=== PATIENT | female | born 1990 | race Caucasian/White ===

== ENCOUNTER 2016-09-27 17:31 | Emergency (ER) | payer BC, MEDICAID ==
[2016-09-27 17:41] VITALS: BP 143/68
--- NOTE | 2016-09-27 17:44 | ER Document Report ---
ED Medical Screen (RME) - General Chief Complaint: Vaginal Bleeding Stated Complaint: CRAMPING Time Seen by Provider: 09/27/16 17:43 Mode of Arrival: Ambulatory Information source: Patient TRAVEL OUTSIDE OF THE [place] IN LAST 30 DAYS: No - HPI Patient complains to provider of: , cramping, spotting Onset: Yesterday Onset/Duration: Gradual Quality of pain: Cramping Severity: Mild Pain Level: 1 Associated Symptoms: Vaginal bleeding Exacerbated by: Denies Relieved by: Denies Similar symptoms previously: No Recently seen / treated by doctor: Yes Notes: 09/27/16 17:50 Patient is a 26-year-old female who is a currently approximately 14 weeks , she works [employer] and on when she was lifting some heavy rocks approximately 70 pounds, she tripped and fell with the rock, she developed some spotting later that night and yesterday which has since resolved, however she continues to have crampy abdominal pain - Related Data Allergies/Adverse Reactions: cefaclor [From Ceclor] Allergy (Mild, Verified 09/27/16 17:38) rash as child Past Medical History Endocrine Medical History: Reports: Hx Hypothyroidism Renal/ Medical History: Denies: Hx Peritoneal Dialysis GI Medical History: Reports: Hx Gastroesophageal Reflux Disease. Denies: Hx Hiatal Hernia, Hx Ulcer Psychiatric Medical History: Reports: Hx Depression - HX OF DEPRESSION Denies: Hx Bipolar Disorder, Hx Schizophrenia Past Surgical History: Reports: Hx Section - x3 - Immunizations Hx Diphtheria, Pertussis, Tetanus Vaccination: Yes - 2009 Physical Exam - Vital signs Vitals: Temp Pulse Resp BP Pulse Ox 98 F 77 16 143/68 H 99 09/27/16 17:38 09/27/16 17:38 09/27/16 17:38 09/27/16 17:38 09/27/16 17:38 Course - Vital Signs Vital signs: Temp Pulse Resp BP Pulse Ox 98 F 77 16 143/68 H 99 09/27/16 17:38 09/27/16 17:38 09/27/16 17:38 09/27/16 17:38 09/27/16 17:38
[2016-09-27 18:11] LABS: ABSOLUTE EOSINOPHILS # (AUTO) 0.1 10^3/uL (0.0-0.6); ABSOLUTE LYMPHOCYTES (AUTO) 2.7 10^3/uL (0.5-4.7); ABSOLUTE MONOCYTES (AUTO) 0.8 10^3/uL (0.1-1.4); ABSOLUTE NEUT (AUTO) 10.1 10^3/uL (1.7-8.2); BASOPHILS % (AUTO) 0.3 % (0-2); HEMATOCRIT 37.2 % (36.0-47.0); HEMOGLOBIN 12.3 g/dL (12.0-15.5); HGB HCT DIFFERENCE -0.3; LYMPHOCYTES % (AUTO) 19.6 % (13-45); MEAN CORPUSCULAR HEMOGLOBIN 29.2 pg (27.0-33.4); MEAN CORPUSCULAR VOLUME 88 fl (80-97); MONOCYTES % (AUTO) 5.8 % (3-13); RED BLOOD COUNT 4.21 10^6/uL (3.72-5.28); RED CELL DISTRIBUTION WIDTH 15.3 % (11.5-14.0); SEGMENTED NEUTROPHILS % (AUTO) 73.3 % (42-78); WHITE BLOOD COUNT 13.7 10^3/uL (4.0-10.5)
--- NOTE | 2016-09-27 18:21 | ER Document Report ---
ED General - General Chief Complaint: Vaginal Bleeding Stated Complaint: CRAMPING Time Seen by Provider: 09/27/16 17:43 Mode of Arrival: Ambulatory Information source: Patient Notes: 26-year-old female 4 para 3 who is approximately 13 weeks presents with complaints of spotting that occurred this morning and now cramping. Patient notes she had a heavy brick fall on her yesterday. Blood type is a positive denies any other concerns TRAVEL OUTSIDE OF THE [place] IN LAST 30 DAYS: No - HPI Onset: Yesterday Onset/Duration: Sudden Quality of pain: Cramping Severity: Mild Pain Level: 1 Associated symptoms: None Exacerbated by: Denies Relieved by: Denies Similar symptoms previously: No Recently seen / treated by doctor: No - Related Data Allergies/Adverse Reactions: cefaclor [From Ceclor] Allergy (Mild, Verified 09/27/16 17:38) rash as child Past Medical History - General Information source: Patient Last Menstrual Period: Jun - Social History Smoking Status: Never Smoker Cigarette use (# per day): No Chew tobacco use (# tins/day): No Smoking Education Provided: No Frequency of alcohol use: None Drug Abuse: None Family History: Reviewed & Not Pertinent Patient has suicidal ideation: No Patient has homicidal ideation: No Endocrine Medical History: Reports: Hx Hypothyroidism Renal/ Medical History: Denies: Hx Peritoneal Dialysis GI Medical History: Reports: Hx Gastroesophageal Reflux Disease. Denies: Hx Hiatal Hernia, Hx Ulcer Psychiatric Medical History: Reports: Hx Depression - HX OF DEPRESSION Denies: Hx Bipolar Disorder, Hx Schizophrenia Past Surgical History: Reports: Hx Section - x3 - Immunizations Hx Diphtheria, Pertussis, Tetanus Vaccination: Yes - 2009 Review of Systems - Review of Systems Notes: PHYSICAL EXAMINATION: GENERAL: Well-appearing, well-nourished and in no acute distress. HEAD: Atraumatic, normocephalic. EYES: Pupils equal round and reactive to light, extraocular movements intact, conjunctiva are normal. ENT: Nares patent, oropharynx clear without exudates. Moist mucous membranes. NECK: Normal range of motion, supple without lymphadenopathy LUNGS: Breath sounds clear to auscultation bilaterally and equal. No wheezes rales or rhonchi. HEART: Regular rate and rhythm without murmurs ABDOMEN: Soft, nontender, nondistended abdomen. No guarding, no rebound. No masses appreciated. Female : deferred Musculoskeletal: Normal range of motion, no pitting or edema. No cyanosis. NEUROLOGICAL: Cranial nerves grossly intact. Normal speech, normal gait. Normal sensory, motor exams PSYCH: Normal mood, normal affect. SKIN: Warm, Dry, normal turgor, no rashes or lesions noted. Physical Exam - Vital signs Vitals: Temp Pulse Resp BP Pulse Ox 98 F 77 16 143/68 H 99 09/27/16 17:38 09/27/16 17:38 09/27/16 17:38 09/27/16 17:38 09/27/16 17:38 Course - Re-evaluation Re-evalutation: 09/27/16 18:28 Patient is in no distress, resting comfortably IuP was confirmed at 7 weeks 09/27/16 19:42 Ultrasound is consistent with a 14 week 2 day given that patient is not bleeding looks well believe she is stable for discharge patient is very happy with this plan After performing a Medical Screening Examination, I estimate there is LOW risk for ACUTE APPENDICITIS, BOWEL OBSTRUCTION, ACUTE CHOLECYSTITIS, PERFORATED DIVERTICULITIS, INCARCERATED HERNIA, PANCREATITIS, PELVIC INFLAMMATORY DISEASE, PERFORATED ULCER, ECTOPIC , or TUBO-OVARIAN ABSCESS, thus I consider the discharge disposition reasonable. Also, there is no evidence or peritonitis , sepsis, or toxicity. I have reevaluated this patient multiple times and no significant life threatening changes are noted. The patient and I have discussed the diagnosis and risks, and we agree with discharging home with close follow-up with the understanding that symptoms and presentations can change. We also discussed returning to the Emergency Department immediately if new or worsening symptoms occur. We have discussed the symptoms which are most concerning (e.g., bloody stool, fever, changing or worsening pain, vomiting) that necessitate immediate return. - Vital Signs Vital signs: Temp Pulse Resp BP Pulse Ox 98.0 F 86 16 143/68 H 99 09/27/16 17:39 09/27/16 17:39 09/27/16 17:39 09/27/16 17:39 09/27/16 17:39 - Laboratory Result Diagrams: 09/27/16 17:55 09/27/16 17:55 Laboratory results interpreted by me: 09/27/16 09/27/16 09/27/16 17:55 17:55 17:55 WBC 13.7 H RDW 15.3 H Absolute Neutrophils 10.1 H BUN 5 L Creatinine 0.51 L Beta HCG, Quant 92189.00 H Ur Leukocyte Esterase SMALL H - Diagnostic Test Radiology reviewed: Image reviewed, Reports reviewed - 14 week Discharge - Discharge Clinical Impression: Abdominal pain affecting Condition: Stable Disposition: HOME, SELF-CARE Instructions: Abdominal Pain ([facility]) Additional Instructions: Follow up with your physician tomorrow for further care or return to the ED IMMEDIATELY if symptoms worsen or new concerns occur. If you cannot afford to follow up with your primary care physician a list of low cost clinics have been provided at the end of your discharge papers as well.
[2016-09-27 18:24] LABS: APPEARANCE,URINE CLOUDY; BILIRUBIN,URINE NEGATIVE (NEGATIVE); CALCIUM OXALATE CRYSTALS,URINE TOO NUMEROUS TO CNT /HPF; GLUCOSE, URINE NEGATIVE (NEGATIVE); KETONES,URINE NEGATIVE (NEGATIVE); LEUKOCYTE ESTERASE,URINE SMALL (NEGATIVE); NITRITE,URINE NEGATIVE (NEGATIVE); PROTEIN,URINE NEGATIVE (NEGATIVE); URINE SPECIFIC GRAVITY 1.019; UROBILINOGEN,URINE NEGATIVE mg/dL (<2.0)
[2016-09-27 18:29] LABS: ALANINE AMINOTRANSFERASE 19 U/L (9-52); ALBUMIN 3.6 g/dL (3.5-5.0); ALKALINE PHOSPHATASE 58 U/L (38-126); ANION GAP 12 (5-19); ASPARTATE AMINO TRANSFERASE 15 U/L (14-36); BILIRUBIN,DIRECT 0.3 mg/dL (0.0-0.4); BILIRUBIN,TOTAL 0.4 mg/dL (0.2-1.3); BLOOD UREA NITROGEN 5 mg/dL (7-20); CALCIUM 9.2 mg/dL (8.4-10.2); CARBON DIOXIDE 23 mmol/L (22-30); CHLORIDE 105 mmol/L (98-107); CREATININE RESULT 0.51 mg/dL (0.52-1.25); GLUCOSE 88 mg/dL (75-110); LIPASE 51.7 U/L (23-300); POTASSIUM 3.9 mmol/L (3.6-5.0); SODIUM 140.3 mmol/L (137-145); TOTAL PROTEIN 6.4 g/dL (6.3-8.2)
--- NOTE | 2016-09-27 19:35 | RADIOLOGY REPORT (SQ) ---
EXAM DESCRIPTION: U/S OB 14+ TA/1 GEST W/DOPPLER COMPLETED DATE/TIME: 09/27/2016 7:14 pm REASON FOR STUDY: cramping, spotting COMPARISON: None. TECHNIQUE: Transabdominal static and realtime grayscale images acquired of the pelvis. Additional se lected spectral and color Doppler images recorded. All images stored on PACs. bHCG: Not available. LIMITATIONS: None. FINDINGS: FETUS: EGA: 14 weeks 2 days ROSARIO: 03/26/2017 EFW: Not applicable. FHR: 150 beats per minute. MARGARITA: Adequate amount. PLACENTA: Anterior. CERVICAL LENGTH: 3.0 cm Closed. UTERUS: No masses. RIGHT ADNEXA: Ovary not identified. No adnexal free fluid. No adnexal masses. LEFT ADNEXA: Ovary not identified. No adnexal free fluid. No adnexal masses. FREE FLUID: None. OTHER: No other significant finding. IMPRESSION: LIVING INTRAUTERINE . ESTIMATED GESTATIONAL AGE:14 WEEKS 2 DAYS. NO GROSS ABNORMALITY. Trimester of : Second trimester - 13 weeks 1 day to 27 weeks 6 days. TECHNICAL DOCUMENTATION: JOB ID: [id number] [employer]- All Rights Reserved
== END 2016-09-27 20:09 | disposition home or self-care (01) ==
LOC: ER 17:31
DX: N93.9 Abnormal uterine and vaginal bleeding, unspecified (principal); R10.9 Unspecified abdominal pain; Z3A.13 13 weeks gestation of pregnancy
CPT/HCPCS: 36415; 76805; 80053; 81001; 83690; 84702; 85025; 87086; 93976; 99284

== ENCOUNTER 2016-11-22 13:50 | Emergency (ER) | payer MEDICAID ==
[2016-11-22] MEDS ORDERED: NORMAL SALINE 1000 ML 1,000 ML IV ONE (15:11)
[2016-11-22] MEDS ORDERED: METOCLOPRAMIDE HCL INJ/PF 10 MG/2 ML SDV IV ONE (15:11)
[2016-11-22] MEDS ORDERED: DIPHENHYDRAMINE HCL 50 MG/ML VIAL IV ONE (15:11)
--- NOTE | 2016-11-22 15:12 | ER Document Report ---
ED Headache - General Mode of Arrival: Ambulatory Information source: Patient TRAVEL OUTSIDE OF THE [place] IN LAST 30 DAYS: No - HPI Patient complains to provider of: Headache Onset: Other - Refer to HPI notes - General Chief Complaint: Headache Stated Complaint: HEADACHE Time Seen by Provider: 11/22/16 15:05 Notes: Patient is a 26 year old female presenting to the emergency department for headache and nausea. Patient is 21 weeks . 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 Patient states her headache is located in her temples and behind her eyes. Patient's headache was onset 3 days ago. Patient states she is also nauseated and states it is from the headache and not her . Patient denies any vision changes, abdominal pain or vaginal bleeding. (TAISHA NEGRO) - Related Data Allergies/Adverse Reactions: cefaclor [From Ceclor] Allergy (Mild, Verified 11/22/16 14:06) rash as child Past Medical History - General Information source: Patient - Social History Smoking Status: Never Smoker Cigarette use (# per day): No Chew tobacco use (# tins/day): No Smoking Education Provided: No Frequency of alcohol use: None Family History: None Patient has suicidal ideation: No Patient has homicidal ideation: No Endocrine Medical History: Reports: Hx Hypothyroidism GI Medical History: Reports: Hx Gastroesophageal Reflux Disease Psychiatric Medical History: Reports: Hx Depression - HX OF DEPRESSION Past Surgical History: Reports: Hx Section - x3 - Immunizations Hx Diphtheria, Pertussis, Tetanus Vaccination: Yes - 2009 Review of Systems - Review of Systems Constitutional: No symptoms reported EENT: No symptoms reported Cardiovascular: No symptoms reported Respiratory: No symptoms reported Gastrointestinal: See HPI, Nausea Genitourinary: No symptoms reported Female Genitourinary: No symptoms reported Musculoskeletal: No symptoms reported Skin: No symptoms reported Hematologic/Lymphatic: No symptoms reported Neurological/Psychological: See HPI, Headaches -: Yes All other systems reviewed and negative Physical Exam - Vital signs Vitals: Temp Pulse Resp BP Pulse Ox 98.8 F 88 16 136/81 H 98 11/22/16 14:05 11/22/16 14:05 11/22/16 14:05 11/22/16 14:05 11/22/16 14:05 - Notes Notes: GENERAL: Alert, interacts well. No acute distress. HEAD: Normocephalic, atraumatic, sensation to the face is intact. EYES: Pupils equal, round, and reactive to light. Extraocular movements intact. ENT: Oral mucosa moist, tongue midline. NECK: Full range of motion. Supple. Trachea midline. LUNGS: Clear to auscultation bilaterally, no wheezes, rales, or rhonchi. No respiratory distress. HEART: Regular rate and rhythm. No murmurs, gallops, or rubs. ABDOMEN: Soft, non-tender. Gravid. Bowel sounds present in all 4 quadrants. EXTREMITIES: Moves all 4 extremities spontaneously. No edema, radial and dorsalis pedis pulses 2/4 bilaterally. No cyanosis. Normal muscle strength bilaterally. NEUROLOGICAL: Alert and oriented x3. Normal speech. Cranial nerves II through XII grossly intact. Biceps and patellar DTRs 2+ bilaterally. PSYCH: Normal affect, normal mood. SKIN: Warm, dry, normal turgor. No rashes or lesions noted. (TAISHA NEGRO) Course - Re-evaluation Re-evalutation: 11/22/16 16:02 Rechecked, feels much better, states she is ready to go home. Patient will be discharged home, warned about the signs of preeclampsia and signs that should prompt her to return. No evidence of preeclampsia at this time. (BETTY SOLORIO) - Vital Signs Vital signs: Temp Pulse Resp BP Pulse Ox 97.7 F 70 16 122/55 L 100 11/22/16 16:11 11/22/16 16:11 11/22/16 16:11 11/22/16 16:11 11/22/16 16:11 Discharge - Discharge Clinical Impression: Second trimester Headache Qualifiers: Headache type: unspecified Headache chronicity pattern: acute headache Intractability: intractable Qualified Code(s): R51 - Headache Condition: Stable Disposition: HOME, SELF-CARE Additional Instructions: I suspect her headache is related to dehydration. Please continue drinking plenty of water and taking Tylenol. Should she develop blurry vision, abdominal pain, worsening headache or any new or concerning symptoms please return immediately. Today we did not see any signs of preeclampsia, a complication that can manifest with headache and change in vision however new symptoms can always occur and should that happen you will need to be reevaluated. Scribe Attestation: 11/22/16 18:33 I personally performed the services described in the documentation, reviewed and edited the documentation which was dictated to the scribe in my presence, and it accurately records my words and actions. (BETTY SOLORIO) Scribe Documentation - Scribe Written by Scribe:: Taisha Negro Scribe 11/22/16 16:36 acting as scribe for :: Alfredo
[2016-11-22 16:22] VITALS: BP 122/55
== END 2016-11-22 16:26 | disposition home or self-care (01) ==
LOC: ER 13:50
DX: O26.92 Pregnancy related conditions, unspecified, second trimester (principal); R51 Headache; R11.0 Nausea; Z3A.21 21 weeks gestation of pregnancy
CPT/HCPCS: 99283; 96361; 96374; 96375; J1200; J2765; J7030